=== PATIENT | female | born 1950 | race Caucasian/White ===

== ENCOUNTER 2017-12-11 10:17 | Emergency (ER) | END 2017-12-11 13:30 | disposition home or self-care (01) ==

== ENCOUNTER 2018-04-06 16:28 | Observation (INO) | END 2018-04-07 15:18 | disposition home or self-care (01) ==

== ENCOUNTER 2018-04-26 14:17 | Emergency (ER) | END 2018-04-26 17:36 | disposition home or self-care (01) ==

== ENCOUNTER 2018-09-04 15:27 | Emergency (ER) | payer MEDICARE, OTHER ==
[~2018-09-04] VITALS: Ht 167.6 cm; Wt 102.9 kg
[~2018-09-04 15:27] MED LIST: HYDR-3980 PO; HYDR-4011 PO; ONDA4TAB14 PO
[2018-09-04 15:32] VITALS: BP 128/69; PULSE 77; RESP 22; Ht 167.6 cm; Wt 102.9 kg
== END 2018-09-04 19:32 | disposition left against medical advice (07) ==
LOC: E/R 15:27
DX: Z53.21 Procedure and treatment not carried out due to patient leaving prior to being seen by health care provider (principal)